=== PATIENT | male | born 1985 ===

== ENCOUNTER 2018-04-02 19:57 | Emergency (ER) | payer SELFPAY ==
[2018-04-02 20:58] LABS: Basophils # (Auto) 0.1 K/mm3 (0.0-0.1); Eosinophils # (Auto) 0.3 K/mm3 (0.0-0.4); Eosinophils % (Auto) 4.5 % (0.0-4.3); Hematocrit 45.2 % (35.5-45.6); Hemoglobin 15.5 gm/dl (11.8-15.2); Lymphocytes # (Auto) 2.2 K/mm3 (1.2-5.4); Lymphocytes % (Auto) 37.9 % (13.4-35.0); Mean Corpuscular HGB Conc 34 % (32-34); Mean Corpuscular Hemoglobin 32 pg (28-32); Mean Corpuscular Volume 93 fl (84-94); Monocytes # (Auto) 0.5 K/mm3 (0.0-0.8); Monocytes % (Auto) 8.5 % (0.0-7.3); Platelet Count 208 K/mm3 (140-440); Red Blood Count 4.84 M/mm3 (3.65-5.03); Red Cell Distribution Width 13.6 % (13.2-15.2)
[2018-04-02 21:19] LABS: Alanine Aminotransferase 12 units/L (7-56); Albumin 4.9 g/dL (3.9-5); BUN/Creatinine Ratio 13; Blood Urea Nitrogen 10 mg/dL (9-20); Calcium 9.3 mg/dL (8.4-10.2); Hemolysis Index 29; Lipase 49 units/L (13-60)
[2018-04-02 21:24] LABS: INR 1.02 (0.87-1.13)
[2018-04-02 21:25] LABS: Partial Thromboplastin Time 31.4 Sec. (24.2-36.6)
--- NOTE | 2018-04-03 03:16 | Emergency Department Report ---
ED General Adult HPI - General Chief complaint: GI Bleed Stated complaint: ABD PAIN Time Seen by Provider: 04/03/18 03:00 Source: patient, RN notes reviewed Mode of arrival: Ambulatory Limitations: No Limitations - History of Present Illness Initial comments: This is a 32-year-old male who is not known to this provider previously, but denies chronic medical conditions, presents to the ER with 2 complaints. His first complaint is 3 years left-sided inguinal hernia. It is not painful at this time. It is intermittent. It does not have exacerbating or relieving factors. The patient's second complaint is bloody defecation for the past 2 weeks. It is constant. It does not radiate anywhere. He does not have exacerbating or relieving factors. Patient reports that he does not consume a lot of water, and reports difficulty with defecation and straining with defecation. He had abdominal discomfort yesterday, but not today. Currently at the moment he has no symptoms or complaints with the exception of bloody defecation for the past 2 weeks. There is no family history of inflammatory bowel disease that he is aware of. No fevers, lethargy, irritability, projectile vomiting. No unexplained loss of weight. -: Gradual, week(s) Location: abdomen Consistency: constant Improves with: none Worsens with: none Associated Symptoms: other (left-sided inguinal hernia, bloody defecation, resolved abdominal). denies: confusion, chest pain, cough, diaphoresis, fever/ chills, headaches, loss of appetite, malaise, nausea/vomiting, rash, seizure, shortness of breath, syncope, weakness - Related Data Allergies Allergy/AdvReac Type Severity Reaction Status Date / Time No Known Allergies Allergy Unverified 04/02/18 20:19 ED Review of Systems ROS: Stated complaint: ABD PAIN Other details as noted in HPI Comment: All other systems reviewed and negative ED Past Medical Hx - Past Medical History Previous Medical History?: No - Surgical History Past Surgical History?: No - Social History Smoking Status: Current Every Day Smoker Substance Use Type: Alcohol ED Physical Exam - General Limitations: No Limitations General appearance: alert, in no apparent distress - Head Head exam: Present: atraumatic, normocephalic - Eye Eye exam: Present: normal appearance, EOMI. Absent: nystagmus - ENT ENT exam: Present: normal exam, normal orophraynx, mucous membranes moist, normal external ear exam - Neck Neck exam: Present: normal inspection, full ROM. Absent: tenderness, meningismus - Respiratory Respiratory exam: Present: normal lung sounds bilaterally. Absent: respiratory distress - Cardiovascular Cardiovascular Exam: Present: regular rate, normal rhythm, normal heart sounds. Absent: bradycardia, tachycardia, irregular rhythm, systolic murmur, diastolic murmur, rubs, gallop - GI/Abdominal GI/Abdominal exam: Present: soft, hernia (there is a left-sided nontender reducible inguinal hernia.), other (chaperoned by nurse Tammie Wakefield). Absent : distended, tenderness, guarding, rebound, rigid - Rectal Rectal exam: Present: normal inspection, normal rectal tone, heme (-) stool, other (anal fissure. chaperoned by ROXI Wakefield) - Extremities Exam Extremities exam: Present: normal inspection, full ROM, normal capillary refill. Absent: tenderness, pedal edema, joint swelling - Back Exam Back exam: Present: normal inspection, full ROM. Absent: tenderness, CVA tenderness (R), paraspinal tenderness, vertebral tenderness - Neurological Exam Neurological exam: Present: alert, oriented X3, CN II-XII intact, normal gait, other (2+ pulses noted in the bilateral upper, lower extremities. Compartments soft. No long bony tenderness. The pelvis is stable.). Absent: motor sensory deficit - Psychiatric Psychiatric exam: Present: anxious - Skin Skin exam: Present: warm, dry, intact, normal color. Absent: rash ED Course Vital Signs 04/02/18 04/03/18 20:18 03:18 Temperature 98.1 F 98.7 F Pulse Rate 77 72 Respiratory 18 17 Rate Blood Pressure 121/75 Blood Pressure 119/83 [Left] O2 Sat by Pulse 99 Oximetry ED Medical Decision Making - Lab Data Result diagrams: 04/02/18 20:39 04/02/18 20:39 Vital Signs 04/02/18 20:18 Temperature 98.1 F Pulse Rate 77 Respiratory 18 Rate Blood Pressure 121/75 O2 Sat by Pulse 99 Oximetry Lab Results 04/02/18 04/02/18 04/02/18 Range/Units 20:25 20:39 20:39 WBC 5.9 (4.5-11.0) K/mm3 RBC 4.84 (3.65-5.03) M/mm3 Hgb 15.5 H (11.8-15.2) gm/dl Hct 45.2 (35.5-45.6) % MCV 93 (84-94) fl MCH 32 (28-32) pg MCHC 34 (32-34) % RDW 13.6 (13.2-15.2) % Plt Count 208 (140-440) K/mm3 Lymph % (Auto) 37.9 H (13.4-35.0) % [place] % (Auto) 8.5 H (0.0-7.3) % Eos % (Auto) 4.5 H (0.0-4.3) % Baso % (Auto) 1.0 (0.0-1.8) % Lymph # 2.2 (1.2-5.4) K/mm3 [place] # 0.5 (0.0-0.8) K/mm3 Eos # 0.3 (0.0-0.4) K/mm3 Baso # 0.1 (0.0-0.1) K/mm3 Seg Neutrophils % 48.1 (40.0-70.0) % Seg Neutrophils # 2.9 (1.8-7.7) K/mm3 PT 13.9 (12.2-14.9) Sec. INR 1.02 (0.87-1.13) APTT 31.4 (24.2-36.6) Sec. Sodium (137-145) mmol/L Potassium (3.6-5.0) mmol/L Chloride (98-107) mmol/L Carbon Dioxide (22-30) mmol/L Anion Gap mmol/L BUN (9-20) mg/dL Creatinine (0.8-1.5) mg/dL Estimated GFR ml/min BUN/Creatinine Ratio % Glucose (75-100) mg/dL Calcium (8.4-10.2) mg/dL Total Bilirubin (0.1-1.2) mg/dL AST (5-40) units/L ALT (7-56) units/L Alkaline Phosphatase (35-129) units/L Total Protein (6.3-8.2) g/dL Albumin (3.9-5) g/dL Albumin/Globulin Ratio % Lipase (13-60) units/L Blood Type A POSITIVE Antibody Screen Negative 04/02/18 Range/Units 20:39 WBC (4.5-11.0) K/mm3 RBC (3.65-5.03) M/mm3 Hgb (11.8-15.2) gm/dl Hct (35.5-45.6) % MCV (84-94) fl MCH (28-32) pg MCHC (32-34) % RDW (13.2-15.2) % Plt Count (140-440) K/mm3 Lymph % (Auto) (13.4-35.0) % [place] % (Auto) (0.0-7.3) % Eos % (Auto) (0.0-4.3) % Baso % (Auto) (0.0-1.8) % Lymph # (1.2-5.4) K/mm3 [place] # (0.0-0.8) K/mm3 Eos # (0.0-0.4) K/mm3 Baso # (0.0-0.1) K/mm3 Seg Neutrophils % (40.0-70.0) % Seg Neutrophils # (1.8-7.7) K/mm3 PT (12.2-14.9) Sec. INR (0.87-1.13) APTT (24.2-36.6) Sec. Sodium 140 (137-145) mmol/L Potassium 4.1 (3.6-5.0) mmol/L Chloride 101.1 (98-107) mmol/L Carbon Dioxide 29 (22-30) mmol/L Anion Gap 14 mmol/L BUN 10 (9-20) mg/dL Creatinine 0.8 (0.8-1.5) mg/dL Estimated GFR > 60 ml/min BUN/Creatinine Ratio 13 % Glucose 102 H (75-100) mg/dL Calcium 9.3 (8.4-10.2) mg/dL Total Bilirubin 0.30 (0.1-1.2) mg/dL AST 19 (5-40) units/L ALT 12 (7-56) units/L Alkaline Phosphatase 46 (35-129) units/L Total Protein 7.3 (6.3-8.2) g/dL Albumin 4.9 (3.9-5) g/dL Albumin/Globulin Ratio 2.0 % Lipase 49 (13-60) units/L Blood Type Antibody Screen - EKG Data -: EKG Interpreted by Me EKG shows normal: sinus rhythm Rate: normal - EKG Data When compared to previous EKG there are: previous EKG unavailable 04/03/18 03:12 Sinus, 72 bpm, premature ventricular contractions, normal axis, normal intervals , motion artifact. Not a STEMI - Medical Decision Making Differential diagnosis, including but not limited to: Left-sided inguinal hernia , reducible, not strangulated or incarcerated, anal fissure Assessment and plan: 32-year-old male with a nontender reducible left inguinal hernia, which can be followed up electively by general surgery as an outpatient. Patient will be given outpatient referrals to general surgery for elective repair. Also endorses 2 weeks of pain in this difficult bloody defecation. There is no abdominal tenderness on my examination. Blood counts within normal limits. Does not require emergent CT scan. Does not require emergent GI consultation. Given expectant management and instructions on how to care for anal fissure. Patient verbalized understanding. No blood on my exam. Vital signs stable. medically suitable for discharge at this point in time. Critical care attestation.: If time is entered above; I have spent that time in minutes in the direct care of this critically ill patient, excluding procedure time. ED Disposition Clinical Impression: Left inguinal hernia, Anal fissure Disposition: TO HOME OR SELFCARE Is pt being admited?: No Does the pt Need Aspirin: No Condition: Stable Instructions: Anal Fissure (ED), Inguinal Hernia (ED) Additional Instructions: Drink 6-8 cups of water daily. Eat plenty of fruits, fibers, vegetables. Follow up with a general surgeon within the next month for elective repair for left inguinal hernia. Return to the ER right away with projectile vomiting, change in mental status, confusion, inability to speak, inability to breathe. Make certain to drink plenty of water and eat plenty of fiber, fruits, vegetables, as these will ease passage of stool, and facilitate resolution of anal fissure. In addition, use a sitz bath as we have discussed. If these interventions do not work, follow up with a renal dietitian. Dr. Ha is a local renal dietitian. Dr. Roberto is a local general surgeon. Referrals: KEEGAN ROBERTO MD [Staff Physician] - 3-5 Days ANGEL LUIS MIKE MD [Staff Physician] - 3-5 Days Forms: Accompanied Note
[2018-04-03 03:19] VITALS: BP 119/83
== END 2018-04-03 03:30 | disposition home or self-care (01) ==
LOC: ED 19:57
DX: K40.90 Unilateral inguinal hernia, without obstruction or gangrene, not specified as recurrent (principal); K60.2 Anal fissure, unspecified; F17.200 Nicotine dependence, unspecified, uncomplicated
CPT/HCPCS: 36415; 80053; 83690; 85025; 85610; 85730; 86850; 86900; 86901; 93005; 93010

== ENCOUNTER 2019-11-13 21:53 | Emergency (ER) | payer SELFPAY ==
[2019-11-13] MEDS ORDERED: DIBUCAINE 1% OINT 28 GM PR PRN (22:41)
[2019-11-13] MEDS ORDERED: KETOROLAC 30 MG/1 ML INJ IM ONE (22:41)
--- NOTE | 2019-11-13 22:46 | Emergency Department Report ---
ED General Adult HPI - General Chief complaint: Rectal Pain Stated complaint: HEMORRHOIDS PUI?: No Source: patient Mode of arrival: Ambulatory Limitations: No Limitations - History of Present Illness Initial comments: Patient is a 34-year-old -[place] male with a history of chronic recurrent external rectal hemorrhoids who presents to the ED with acute exacerbation of his chronic hemorrhoid pain characterized by severe rectal pain for the last 2 days. Patient states that he is unable to sleep because of severe pain. Patient also states that he has not had a bowel movement in 24 hours, and that the last bowel movement was normal. Patient denies rectal bleeding, fever, chills, traumatic injury, nausea, vomiting, abdominal pain, diarrhea, constipation, dysuria, urinary frequency and urgency or testicular pain. MD Complaint: Rectal pain due to hemorrhoids -: Sudden, days(s) (2) Location: buttocks Radiation: non-radiation Severity scale (0 -10): 8 Quality: aching, sharp Consistency: constant Improves with: none Worsens with: none Associated Symptoms: denies other symptoms. denies: confusion, chest pain, cough, diaphoresis, fever/chills, headaches, loss of appetite, malaise, nausea/vomiting, rash, seizure, shortness of breath, syncope, weakness, other Treatments Prior to Arrival: none - Related Data Previous Rx's Medication Instructions Recorded Last Taken Type Dibucaine 1% [Nupercainal] 1 applicatio [place] Q8H PRN #1 tube 11/13/19 Unknown Rx Hydrocortisone [Anusol-Hc 2.5% TOP 30 gm RC Q6H PRN #1 tube 11/13/19 Unknown Rx CREAM] Ketorolac [Toradol] 10 mg PO Q8H PRN #20 tablet 11/13/19 Unknown Rx Allergies Allergy/AdvReac Type Severity Reaction Status Date / Time No Known Allergies Allergy Unverified 04/02/18 20:19 ED Review of Systems ROS: Stated complaint: HEMORRHOIDS Other details as noted in HPI Constitutional: denies: chills, fever Eyes: denies: eye pain, eye discharge, vision change ENT: denies: ear pain, throat pain Respiratory: denies: cough, shortness of breath, SOB with exertion, wheezing Cardiovascular: denies: chest pain, palpitations, syncope Endocrine: no symptoms reported Gastrointestinal: other (Rectal pain due to hemorrhoids). denies: abdominal pain, nausea, vomiting, diarrhea Genitourinary: denies: urgency, dysuria Musculoskeletal: denies: back pain, joint swelling, arthralgia Skin: denies: rash, lesions Neurological: denies: headache, weakness, paresthesias Psychiatric: denies: anxiety, depression Hematological/Lymphatic: denies: easy bleeding, easy bruising ED Past Medical Hx - Past Medical History Previous Medical History?: No - Surgical History Past Surgical History?: No - Social History Smoking Status: Current Every Day Smoker Substance Use Type: Alcohol - Medications Home Medications: Home Medications Medication Instructions Recorded Confirmed Last Taken Type Dibucaine 1% [Nupercainal] 1 applicatio [place] Q8H PRN #1 tube 11/13/19 Unknown Rx Hydrocortisone [Anusol-Hc 2.5% TOP 30 gm RC Q6H PRN #1 tube 11/13/19 Unknown Rx CREAM] Ketorolac [Toradol] 10 mg PO Q8H PRN #20 tablet 11/13/19 Unknown Rx ED Physical Exam - General Limitations: No Limitations General appearance: alert, in no apparent distress - Head Head exam: Present: atraumatic, normocephalic, normal inspection - Eye Eye exam: Present: normal appearance, PERRL, EOMI Pupils: Present: normal accommodation - ENT ENT exam: Present: normal exam, normal orophraynx, mucous membranes moist, TM's normal bilaterally, normal external ear exam - Neck Neck exam: Present: normal inspection, full ROM - Respiratory Respiratory exam: Present: normal lung sounds bilaterally. Absent: respiratory distress, wheezes, rales, rhonchi, stridor, chest wall tenderness, decreased breath sounds, prolonged expiratory - Cardiovascular Cardiovascular Exam: Present: regular rate, normal rhythm, normal heart sounds. Absent: systolic murmur, diastolic murmur, rubs, gallop - GI/Abdominal GI/Abdominal exam: Present: soft, normal bowel sounds. Absent: tenderness, guarding, rebound, hyperactive bowel sounds - Rectal Rectal exam: Present: deferred, normal rectal tone, hemorrhoids (external tender), tenderness (rectal tenderness due to external hemorrhoids) - Extremities Exam Extremities exam: Present: normal inspection, full ROM, normal capillary refill - Back Exam Back exam: Present: normal inspection, full ROM. Absent: tenderness, CVA tenderness (R), muscle spasm, vertebral tenderness - Neurological Exam Neurological exam: Present: alert, oriented X3, CN II-XII intact, normal gait, reflexes normal - Psychiatric Psychiatric exam: Present: normal affect, normal mood - Skin Skin exam: Present: warm, dry, intact, normal color. Absent: rash ED Medical Decision Making - Medical Decision Making This is a 34-year-old -[place] male with a history of chronic recurrent external rectal hemorrhoids who presents to the ED with acute exacerbation of his chronic hemorrhoid pain characterized by severe rectal pain for the last 2 days. Patient states that he is unable to sleep because of severe pain. Patient also states that he has not had a bowel movement in 24 hours, and that the last bowel movement was normal. In the ED, patient is alert and oriented x3 and is not in any distress. Patient was treated for pain in the ED and was discharged home on pain medications and advised to follow-up with his primary care physician in 5 to 7 days for reevaluation. Patient was advised return to the ED immediately if symptoms get worse. - Differential Diagnosis hemorrhoids; abscess; anal fissures; constipation Critical care attestation.: If time is entered above; I have spent that time in minutes in the direct care of this critically ill patient, excluding procedure time. ED Disposition Clinical Impression: External hemorrhoid, Rectal or anal pain Disposition: TO HOME OR SELFCARE Is pt being admited?: No Does the pt Need Aspirin: No Condition: Stable Instructions: Hemorrhoids (ED) Additional Instructions: Take medication for pain, apply the prescribed ointment for pain as well. Follow-up with your primary care physician as advised for further evaluation. Return to the ED immediately if symptoms get worse. Prescriptions: Hydrocortisone [Anusol-Hc 2.5% TOP CREAM] 30 gm RC Q6H PRN #1 tube PRN Reason: Hemorrhoids Dibucaine 1% [Nupercainal] 1 applicatio [place] Q8H PRN #1 tube PRN Reason: Pain , Severe (7-10) Ketorolac [Toradol] 10 mg PO Q8H PRN #20 tablet PRN Reason: Pain Referrals: [facility] [Provider Group] - 3-5 Days Time of Disposition: 22:51 Print Language: KOS[place]
[2019-11-14 00:18] VITALS: BP 120/77
== END 2019-11-13 22:28 | disposition home or self-care (01) ==
LOC: ED 21:53
DX: K64.4 Residual hemorrhoidal skin tags (principal); F17.200 Nicotine dependence, unspecified, uncomplicated; Z79.899 Other long term (current) drug therapy
CPT/HCPCS: 96372; 99282; J1885